=== PATIENT | female | born 1975 | race Caucasian/White ===

== ENCOUNTER 2019-05-14 13:45 | Day surgery (SDC) | payer BC, SELFPAY ==
[2019-05-11 12:40] VITALS: BMI 41.6
[2019-05-14] VITALS (14 sets, daily range): BP systolic 106–136; BP diastolic 62–86; PULSE 75–106; RESP 8–20; TEMP 36–36.4; O2SAT 95–99; BMI 41.0
--- NOTE | 2019-05-14 | DI.RAD.S_ITS ---
PROCEDURE: XR LUMBAR SPINE 2-3V INDICATIONS: L4-5 MICRODISECTOMY TECHNIQUE: 2 views of the lumbar spine were acquired. COMPARISON: [facility], , -SPINE 2-3 VIEWS, 10/25/2014, 10:04. FINDINGS: Spot fluoroscopic images demonstrating surgical instrument with the tip projecting at the L4-L5 level in the posterior paraspinal soft tissues. Dictated by: Kaiser Scanlon M.D. on 05/14/2019 at 16:09 Approved by: Kaiser Scanlon M.D. on 05/14/2019 at 16:09
[2019-05-14] MEDS: LACTATED RINGERS 1,000 ML 42 ML IV (14:16)
--- NOTE | 2019-05-14 14:39 | PM.PREOP ---
Pre-operative Note Interval Note History & Physical reviewed/Exam performed by Physician: Yes Changes to H&P: No
[2019-05-14] MEDS: CEFAZOLIN 2 GM/100 ML FROZ.PIGGY IV (15:07)
--- NOTE | 2019-05-14 15:34 | SUR.OPER ---
Prone on spine table, head in foam head support, padded chest and pelvic supports, gel pad at knees, lower legs supported by pillows; nipples, genitalia and toes free of pressure, arms secured on foam padded arm boards at <90 degrees abduction. Gel pads added under bilateral thighs, Tape over blanket at thigh secured to table.
[2019-05-14] MEDS: BUPIVACAINE 0.25% W/ EPI 30 ML VIAL INJ (15:39)
[2019-05-14] MEDS: methylPREDNISolone acet DEPO 40 MG/ML VIAL INJ (15:40)
--- NOTE | 2019-05-14 16:02 | P.OP_ITS ---
Operative Date/Time/Diagnoses Date of procedure: 05/14/19 Time of procedure: 15:03 Pre-op diagnosis: 1. L4-5 disc herniation 2. Lumbar radiculopathy Post-op diagnosis: same Procedure & Clinicians Procedure: 1. L4-5 right microdiscectomy with laminotomy 2. Utilization of microsurgical technique and operating microscope Same procedure as scheduled: Yes Indications: Patient has been having chronic back pain and worsening lumbar radiculopathy. Patient failed multiple conservative management with worsening pain weakness and numbness in her lower extremity. Patient has been having difficulty performing activity of daily living. After discussing risks benefits of treatment options, patient elected proceed with surgery. Surgeon: Hailey Napier Slitter And Rewinder Machine Operator: Barbara Choudhary Click Yes if Unassisted: No Anesthesia Type: General Operative Notes Closure Type: primary Specimen(s): none sent Estimated Blood Loss (mL): 10 Blood products transfused: none Procedure in detail: Patient was seen in the preoperative area. Risks and benefits of the surgery was discussed with the patient. Informed consent was obtained from the patient and placed in the chart. Surgical site was marked. Patient was taken to the operative room. General anesthesia was administered. Prophylactic antibiotic was given to the patient less than 30 min before the incision was made. Patient was placed into a prone position on the Crow table. Patient's back was then prepped and draped in the sterile fashion. Time- out was performed at this time. Using AP and lateral C-arm imaging the interval between L4-5 was identified and marked on patient's back. A 1 inch incision 1 in from midline was made on the right side. The fascia was incised in line with skin incision. Globus MARS retractors was placed inside the incision and docked onto the L4 lamina. Using microsurgical technique and operating microscope, a L4-5 laminotomy was performed using a Kerrison rongeur. Liagamentum flavum was resected at the site of the laminotomy. The disc space at L4-5 was identified. Microcurettes and pituitary was used to removed herniated disc fragments of disc from the epidural space and completing a microdiscectomy procedure. After the microdiskectomy was completed, the area medial lateral superior and inferior to the area of the microdiskectomy was inspected and explored using a micro curette. No other impinging structure was identified. The wound was then irrigated with sterile normal saline. 40 mg Depo-Medrol was placed into the epidural space. The deep fascia was closed with 1-0 Vicryl. The subcutaneous tissue was closed with 2-0 Vicryl. The skin was closed with skin amie. Patient tolerated the procedure well. There were no complications. Patient was transferred recovery room in stable condition. Complications: none Post-operative Condition: stable Disposition: same day surgery Plan for aftercare: Discharge to home
[2019-05-14] MEDS: HYDROMORPHONE 2 MG INJ 0.5 MG IV ×4 (16:32→17:01)
[2019-05-14] MEDS: OXYCODONE/ACETAMINOPHEN 5/325 TABLET 1 TAB PO ×2 (16:33→17:04)
--- NOTE | 2019-05-14 16:53 | SUR.PHASEI ---
Pt awake, oriented, tolerating PO well. Rx for pain, slight improvement.
--- NOTE | 2019-05-14 17:14 | SUR.PHASEI ---
Report given to Isaac Trejo RN. Pt verbalizes pain improvement, appears relaxed and comfortable. Dressing remains CDI.
--- NOTE | 2019-05-14 17:18 | SUR.PHASEI ---
ASSUMED CARE OF PT AT THIS TIME. PT SITTING UP IN BED WITH EYES OPEN. PT APPEARS COMFORTABLE. DRSG OBSERVED TO BE C/D/I. IV SITE CLEAR AND INFUSING WITHOUT DIFFICULTLY. PT DENIES ANY NAUSEA.
== END 2019-05-14 18:23 | disposition home or self-care (01) ==
PROVIDERS: PCP Nurse Practitioner; Visit Provider Orthopaedic Surgery Orthopaedic Surgery of the Spine
PROC: (CPT 63030; principal; 2019-05-14 15:45)
DX: M51.16 Intervertebral disc disorders with radiculopathy, lumbar region (principal); M48.061 Spinal stenosis, lumbar region without neurogenic claudication
CPT/HCPCS: 63030; 72100; 76000; J0690; J1030; J1100; J1170; J1885; J2250; J2405; J2704; J3010

== ENCOUNTER 2019-09-10 11:18 | Inpatient (IN) | payer BC, OTHER, SELFPAY ==
[2019-09-03 09:34] VITALS: BMI 42.9
[2019-09-10] VITALS (23 sets, daily range): BP systolic 96–142; BP diastolic 41–87; PULSE 85–118; RESP 10–16; TEMP 36.1–36.8; O2SAT 86–100; BMI 42.9
--- NOTE | 2019-09-10 | DI.RAD.S_ITS ---
PROCEDURE: XR LUMBAR SPINE 2-3V INDICATIONS: L4-5 TLIF TECHNIQUE: 2 views of the lumbar spine were acquired. COMPARISON: [facility], [place], XR LUMBAR SPINE 2-3V, 05/14/2019, 15:35. [facility], [place], L-SPINE 2-3 VIEWS, 10/25/2014, 10:04. FINDINGS: Bones: Normal alignment established after placement of transverse pedicle screws and vertical fixation rods crossing L4-L5 with interbody disc cage prosthesis device centrally positioned. Soft tissues: Overlying bowel gas pattern is normal. No suspicious soft tissue calcifications. IMPRESSION: Expected postoperative appearance, after posterior fusion and interbody disc cage prosthesis device, L4-L5. Normal alignment. Dictated by: Andrey Somers M.D. on 09/11/2019 at 10:25 Approved by: Andrey Somers M.D. on 09/11/2019 at 10:26
[2019-09-10] MEDS: LACTATED RINGERS 1,000 ML 42 ML IV ×3 (12:11→19:32)
--- NOTE | 2019-09-10 14:54 | PM.PREOP ---
Pre-operative Note Interval Note History & Physical reviewed/Exam performed by Physician: Yes Changes to H&P: No
[2019-09-10] MEDS: CEFAZOLIN 2 GM/100 ML FROZ.PIGGY IV ×2 (15:21→22:21)
--- NOTE | 2019-09-10 15:59 | SUR.OPER ---
Prone on spine table, head in foam head support, padded chest and pelvic supports, gel pad at knees, lower legs supported by pillows; nipples, genitalia and toes free of pressure, arms secured on foam padded arm boards at <90 degrees abduction. Tape over blanket at thigh secured to table.
[2019-09-10] MEDS: BUPIVACAINE 0.25% W/ EPI 30 ML VIAL INJ (16:07)
[2019-09-10] MEDS: BUPIVACAINE LIPOSOME 266 MG/20 ML VIAL INJ (16:08)
--- NOTE | 2019-09-10 18:13 | P.OP_ITS ---
Operative Date/Time/Diagnoses Date of procedure: 09/10/19 Time of procedure: 15:13 Pre-op diagnosis: 1. L4-5 recurrent disc herniation 2. L4-5 spinal stenosis with radiculopathy Post-op diagnosis: same Procedure & Clinicians Procedure: 1. L4-5 Postero-lateral and posterior interbody fusion 2. L4-5 interbody cage placement. 3. L4-5 decompressive laminectomy with bilateral facetecomies 4. L4-5 Posterior non-segmental instrumentation 5. [place] of bone marrow from iliac crest 6. Utilization of microsurgical technique and operating microscope Same procedure as scheduled: Yes Indications: Patient has been having chronic back pain and worsening lumbar radiculopathy. Patient had prior lumbar microdiskectomy with recurrence of her symptoms. Patient failed multiple conservative management with worsening pain weakness and numbness in her lower extremity. Patient has been having difficulty performing activity of daily living. After discussing risks benefits of treatment options, patient elected proceed with surgery. Surgeon: Hailey Napier Cleaning Machine Operator: Marylu Reilly Click Yes if Unassisted: No Anesthesia Type: General Operative Notes Closure Type: primary Specimen(s): none sent Prosthetic devices, grafts, tissues, transplants, or devices: Globus revolve screws, Rise cage Estimated Blood Loss (mL): 50 Blood products transfused: none Procedure in detail: Patient was seen in the preoperative area. Risks and benefits of the surgery was discussed with the patient. Informed consent was obtained from the patient and placed in the chart. Surgical site was marked. Patient was taken to the operative room. General anesthesia was administered. Prophylactic antibiotic was given to the patient less than 30 min before the incision was made. Patient was placed into a prone position on the Crow table. Patient's back was then prepped and draped in the sterile fashion. Time- out was performed at this time. Using AP and lateral C-arm imaging the interval between L4-5 was identified and marked on patient's back. A 2 inch incision 2 in from midline was made on the right side first. The fascia was incised in line with skin incision. Globus MARS retractors was placed inside the incision and docked onto the L4 lamina. Using microsurgical technique and operating microscope, a L4 laminectomy and L4- 5 facetectomy was performed using a Kerrison rongeur. Patient was found have severe neuroforaminal stenosis and moderate central stenosis with epidural scarring. The stenosis was fully decompressed after the decompression was completed. The disc space at L4-5 was identified. And a total diskectomy was performed at L4-5 level. The endplates were decorticated using a rasp and shaver. The total diskectomy and decortication was performed at L4-5 level in order to to accomplish a L4-5 fusion. The local bone from the laminectomy and facetectomy was saved for local bone grafting. After the total diskectomy and decortication was completed, Bio4 bone graft material was combined with local bone that was harvested earlier. At this time, a separate skin is incision was made over the iliac crest. A Jamshidi needle was inserted into the iliac crest through a separate skin incision. 5 cc of bone marrow aspiration was obtained through the separate skin incision using a Jamshidi needle from the iliac crest. The bone marrow aspiration was combined with local bone and the Bio4 bone grafting material. The bone grafting material was placed into the L4-5 interbody space along with a expandable cage. The cage was expanded to its maximum height using the torque limiting screwdriver. At this time a mirror image incision was made on the left side. The fascia was incised in line with the skin incision. Globus MARS retractor was inserted and docked onto the L4-5 posterolateral gutter. Using the power drill, posterior- lateral decortication was performed at L4-5 level until bleeding cortical bone was identified. The remaining bone grafting material was placed into the L4-5 posterior lateral gutter he order to accomplish posterolateral fusion at the L4- 5 level. Using the double C-arm technique, pedicle screws were placed into the L4-5 pedicles bilaterally. This was done by placing the Jamshidi needle into the pedicles, then placing the guidewires over the Jamshidi needle, and finally placing the cannulated screws over the guidewires bilaterally. After the pedicle screws were placed, 2 titanium rods was locked into the heads of the pedicle screws using locking caps and torque limiting screwdriver. After all the hardware was placed, and confirmed with AP and lateral C-arm imaging, the wound was then irrigated with sterile normal saline and packed with Ray-Malathi gauze for 3 min to accomplish hemostasis. After the gauze was removed the deep fascia was closed with #1 Vicryl suture. The subcutaneous layer was closed with 2-0 Vicryl. The skin was closed with skin amie. Patient tolerated the procedure well. There were no complications. Complications: none Post-operative Condition: stable Disposition: PACU Plan for aftercare: Admit to inpatient hospital
[2019-09-10] MEDS: HYDROMORPHONE 2 MG INJ IV ×4 (18:31→19:03)
[2019-09-10] MEDS: ONDANSETRON 4 MG/2 ML INJ IV (18:32)
[2019-09-10] MEDS: hydrOXYzine 50 MG/ML INJ 25 MG IM (18:32)
[2019-09-10] MEDS: fentaNYL 100 MCG/2 ML INJ 50 MCG IV (19:07)
[2019-09-10] MEDS: fentaNYL 100 MCG/2 ML INJ IV (19:17)
[2019-09-10] MEDS: LORazepam 2 MG/ML INJ 0.25 MG IV (19:27)
--- NOTE | 2019-09-10 19:44 | SUR.PHASEI ---
patient rating pain 6/10. Encouraged deep breathing. Repositioned for comfort and placed pillows under each arm.
[2019-09-10] MEDS: SODIUM CHLORIDE 0.9% 1,000 ML 100 ML IV (20:52)
[2019-09-10] MEDS: HYDROCODONE/ACET 5/325 TABLET 2 TAB PO (21:00)
[2019-09-10] MEDS: DOCUSATE 100 MG CAPSULE PO (21:08)
[2019-09-10] MEDS: HYDROMORPHONE 0.5 MG INJ IV (22:21)
--- NOTE | 2019-09-10 23:59 | PC.NURSE ---
Post-op note: Patient brought to rm 221 at 2015, awake, oriented to situation. Rating back pain still a 5 or 6, reporting some relief from meds given in PACU. Lower back drsg is CDI. No redness or swelling around drsg site. Encouraged her to logroll, asked her if she wanted to roll to side to help alleviate pain but she declined saying I don't think that will help. Medicated her with 2 tabs [place]. Tolerating few scacks, pudding, soup & crackers. After 1 hour she reported pain still a 6 or 7, medicated with Dilaudid 0.5 mg IV which she said really helped. After med given, she was transfered to BS with 1 person SBA, denied dizziness or nausea, able to void, then back to bed. Still reporting good pain relief. Visiting with TORY Plascencia, he is spending night on window bench. Full patient report given to Selene BELL RN.
[2019-09-11] VITALS (9 sets, daily range): BP systolic 94–133; BP diastolic 53–75; PULSE 80–109; RESP 16–21; TEMP 36.1–37.7; O2SAT 96–99
[2019-09-11] MEDS: HYDROMORPHONE 0.5 MG INJ IV ×8 (00:12→22:33)
[2019-09-11] MEDS: HYDROCODONE/ACET 5/325 TABLET 2 TAB PO ×3 (03:35→11:43)
[2019-09-11] MEDS: CEFAZOLIN 2 GM/100 ML FROZ.PIGGY IV (06:50)
--- NOTE | 2019-09-11 07:46 | PM.PNPO.1 ---
Subjective Subjective Date Patient Seen: 09/11/19 Time Patient Seen: 07:46 Interval history: Pain 6/10. No fever chills. No nausea vomiting. Exam Vital Signs (past 8 hours): - 09/11/19 05:00 Temperature 97.2 F L Pulse Rate 91 H Respiratory Rate 16 Blood Pressure 128/61 Pulse Oximetry 99 Oxygen Delivery Method Room Air Oxygen Flow Rate 2 Narrative Exam Narrative: Obese 44-year-old female resting comfortably in bed in no apparent distress. Lumbar dressing is clean, dry and intact. Motor functions intact bilateral lower extremities. Sensation grossly intact to light touch bilateral lower extremities. Both legs are warm and dry. Assessment & Plan Post-op Postoperative Procedures: Procedures Operation Date: 09/10/19 13:45 Actual Procedures Side Surgeon p L4-5 TLIF Not Applicable Hailey Napier MD Postop day 1. Continue work on pain management. Mobilize with physical therapy. Limit bending, lifting, twisting. Quality VTE Deep Vein Thrombosis/Pulmonary Embolism Present on Admission: No
[2019-09-11] MEDS: VENLAFAXINE ER 75 MG CAP PO (07:47)
[2019-09-11] MEDS: DOCUSATE 100 MG CAPSULE PO ×2 (07:47→20:14)
[2019-09-11] MEDS: hydrOXYzine pamoate 25 MG CAPSULE PO ×3 (10:23→21:07)
--- NOTE | 2019-09-11 10:49 | CM.DANOTE ---
DCP: Case received, EMR reviewed and met with patient. Introduced self and role. Was able to meet with patient to obtain information regarding baseline activity and health information. DCP assessment completed with information currently available. Patient is a 44 year old female who admitted yesterday morning to the care of the orthopedic team. PCP: Dr. Leos. Payer: confirmed: [facility] Patient came to the hospital for a surgical procedure. She had L4-5 posteo later interbody fusion. Patient has history of chronic back pain secondary to spinal stenosis. Met with patient in her room. She was laying on her back, alert and oriented, pleasant. Patient resides on [address] with her spouse, Temo, and her teenagers. She has a 15 and a 19 year old. Patient mentioned that her back problems started when she had tripped and fallen down the stairs. Patient is independent, does use a cane at times. She drives, for she drives her daughter to [place] for her school. She has not yet been up with P.T. P: DCP to continue to follow. Patient will be working with P.T. She should be able to go home when she is medically stable and after she works with P.T. Wendy Chau RN/Me[employer] Car Checker
--- NOTE | 2019-09-11 11:00 | PT.IIE ---
Current Diagnoses Spinal stenosis, lumbar region without neurogenic claudication (09/10/19) Intervertebral disc disorders with radiculopathy, lumbar region (09/10/19) Other specified postprocedural states (09/10/19) Surgery Performed Operation Date: 09/10/19 13:45 Actual Procedures p L4-5 TLIF(Not Applicable) - Hailey Napier MD Surgical History (Last Updated 09/03/19 @ 10:08 by Mandie Herbert, RN) Hx of microdiscectomy (Acute 05/14/19) Medical History (Last Updated 09/03/19 @ 10:13 by Mandie Herbert RN) Anxiety (Acute) Arthritis (Acute) Balance problem (Acute) Clenching of teeth (Acute) Foot fracture, left (Acute ~2014) Heartburn (Acute) Lumbar disc herniation (Acute) Radiculopathy (Acute) Sciatica (Acute) Spinal stenosis of lumbar region (Acute) Physical Therapy Inpatient Evaluation/Re-Eval M1 PT/OT-IP Prior Functional Status Start: 09/11/19 12:18 Freq: NEEDED Status: Active Protocol: Document 09/11/19 11:00 AB (Rec: 09/11/19 12:35 AB [id number]) Medical Review Prior Functional Status Medical History Reviewed Yes Communication able to make needs known Mobility and Gait pt stated that she is modified independent with all mobilities and ambulation without AD but occasionally uses a SPC depending on pain level Social History Household Members spouse,children Living Arrangements House Number of Floors (Floors) Two Floors Number of Stairs To Enter/Railing? 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 fusion/lami; difficulty in walking Onset Date 09/10/2019 Precautions Lumbar Precautions Log Roll,No Twisting,Limit Bending,Lifting Restriction of 10 lbs,Gait Belt above Incisional Area M3 PT-IP Subjective Start: 09/11/19 12:18 Freq: NEEDED Status: Active Protocol: Document 09/11/19 11:00 AB (Rec: 09/11/19 12:35 AB [id number]) Subjective Physical Therapy Visit Type Type Initial Evaluation Visit Start Time 11:00 Visit Stop Time 11:45 Total Visit Minutes 45 Number of UNIVERSITY TUTOR Visits 0 Physical Therapy Visit Comments Patient Comments pt agreeable to do PT Therapy Pain Assessment Pain When Pain Assessed At Rest Pain Present Pain Present Pain Reported Location Lower Back Intensity 7 Scale Used Numeric (1 - 10) Pain Management Techniques Apply Cold,Re-positioning, Timing of Activity with Medications M4 PT-IP Mobility and Gait Start: 09/11/19 12:18 Freq: NEEDED Status: Active Protocol: Document 09/11/19 11:00 AB (Rec: 09/11/19 12:35 [id number]) PT-Bed Mobility Assessment Rolling Type of Rolling Log Rolling Level of Assist Maximal Assistance,1 Person Assistance Supine to Sit Supine to Sit Moderate Assistance,1 Person Assistance Scooting Scooting to Edge of Bed Moderate Assistance,Maximum Assistance PT-Transfer Assessment Sit to and From Stand Sit to and from Stand Moderate Assistance,1 Person Assistance,Use of Upper Extremities Equipment Transfer Assistive Device Gait Belt,Front Wheeled Walker Orthotic/Prosthetic Devices or Brace: No Transfers Transfer Destination Chair Transfer Technique ambulated using FWW Transfer Ability Level of Assist Moderate Assistance,1 Person Assistance,Use of Upper Extremities Comments Mobility Comments educated on back precautions and log roll bed mobility. completed supine to sit max A and max cues. pt was able to sit on EOB SBA. completed sit to stand mod A and cues. ambulated in room ~ 30 ft min A and cues using FWW. pt agreed to sit up on chair. positioned on chair. call light and table placed within reach. Gait Assessment Gait Gait Assistance Required: Minimum Assistance,1 Person Assist Distance (Feet) 30 Able to Maintain Weight Bearing Status Yes During Gait Assistive Devices Assistive Device Gait Belt,Front Wheeled Walker Orthotic/Prosthetic Devices or Brace: No Gait Deviations General Gait Pattern Antalgic,Decreased Stride Length,Decreased Feet Clearance Factors Limiting Gait Function Factors Limiting Gait Function Decreased Activity Tolerance, Decreased Sensation,Decreased Strength,Limited Range of Motion,Pain,Poor Balance PT-Balance Assessment Sitting Balance and Reactions Static Sitting Balance Ability Good Dynamic Sitting Balance Ability Good Standing Balance and Reactions Static Standing Balance Ability Fair Dynamic Standing Balance Ability Fair Device Used FWW M5 PT-IP Objective Assessments Start: 09/11/19 12:18 Freq: NEEDED Status: Active Protocol: Document 09/11/19 11:00 AB (Rec: 09/11/19 12:35 AB [id number]) Orientation Orientation/Cognition Level of Alertness Alert Orientation Name,Age,Place,Situation Language Function Ability No Deficits Noted Safety Awareness Understands Safety Issues Memory Description No Deficits Noted Gross Range of Motion Lower Extremity ROM Assessment Within Functional Limits Strength Lower Extremity Strength Assessment Bilaterally Impaired Comments Strength Comments RLE 3+/5 LLE 4-/5 Coordination Assessment Gross Coordination Gross Coordination WNL Sensation Assessment Sensation Sensation Description Numbness,Tingling,Pain Comments Sensation Comments pain, numbness, tingling : RLE >LLE Muscle Tone Muscle Tone WNL Yes M6 PT-IP Treatment Start: 09/11/19 12:18 Freq: NEEDED Status: Active Protocol: Document 09/11/19 11:00 AB (Rec: 09/11/19 12:35 [id number]) Physical Therapy Treatment Education Education Provided Precautions,Weight Bearing Status,Post-Op Packet,Safety M7 PT-IP Assessment and Plan Start: 09/11/19 12:18 Freq: NEEDED Status: Active Protocol: Document 09/11/19 11:00 AB (Rec: 09/11/19 12:35 [id number]) PT Summary Assessment and Plan Potential Rehabilitation Potential Good Status of Condition at Evaluation Stable Summary Impairments Pain,ROM,Strength,Balance, Sensation,Bed Mobility, Transfers,Gait,Activity Tolerance Assessment Summary pt requiring max A for bed mobility, mod A for transfers, min A for ambulation using FWW. pt plans to gohome with spouse to assist her. will conducted caregiver training when appropriate. will also complete stair training. Goals Bed Mobility Goal Independent Transfer Goal Independent,Front Wheeled Walker Gait Goal Independent,Front Wheel Walker Gait Distance 250 Other Goals up/down 15 steps L rail asceding SBA up/down 2 steps using foot stool and FWW to get into the shower SBA Days to Meet Goals 5 Frequency of Treatment Frequency Of Treatment Twice a Day Treatment Plan Physical Therapy Treatment Plan Bed Mobility Training,Transfer Training,Gait Training, Therapeutic Exercise,Balance Retraining,Post Op Education, Discharge Planning,Hot or Cold Pack,Neuromuscular Re-ed, Coordination Retraining,Manual Therapy Other Recommendations and Next Treatment caregiver training; up/down Focus foot stood using FWW Recommendations To Nursing Amount of Assist Needed 1 Person Assist Discharge Recommendations PT Discharge Recommendations Home with Assistance Equipment Needed for Home Before FWW Discharge Transportation Needs at Discharge Private Vehicle
--- NOTE | 2019-09-11 13:22 | OT.IP.EVAL ---
Current Diagnoses Spinal stenosis, lumbar region without neurogenic claudication (09/10/19) Intervertebral disc disorders with radiculopathy, lumbar region (09/10/19) Other specified postprocedural states (09/10/19) Surgery Performed Operation Date: 09/10/19 13:45 Actual Procedures p L4-5 TLIF(Not Applicable) - Hailey Napier MD Past Medical History (Last Updated 09/03/19 @ 10:13 by Mandie Herbert, RN) Anxiety (Acute) Arthritis (Acute) Balance problem (Acute) Clenching of teeth (Acute) Foot fracture, left (Acute ~2014) Heartburn (Acute) Lumbar disc herniation (Acute) Radiculopathy (Acute) Sciatica (Acute) Spinal stenosis of lumbar region (Acute) Surgical History (Last Updated 09/03/19 @ 10:08 by Mandie Herbert RN) Hx of microdiscectomy (Acute 05/14/19) Occupational Therapy Inpatient Evaluation/Re-Eval M1 PT/OT-IP Prior Functional Status Start: 09/11/19 12:18 Freq: NEEDED Status: Active Protocol: Document 09/11/19 13:22 PJM (Rec: 09/11/19 15:30 PJM [id number]) Medical Review Prior Functional Status Medical History Reviewed Yes Diet/Fluid Consistency Mechanical Soft Communication WNL Mobility and Gait Pt states she normally ambulates without a device, but occasionally uses a cane if pain level is high. Activities of Daily Living and IADL's Pt independent with all self care. She and S.O. share IADLS. Pt drives. Prior Functional Level (Other details) Pt has 2 children living with her, ages 19 and 15 yrs. Social History Household Members spouse,children Living Arrangements House Number of Floors (Floors) Two Floors Number of Stairs To Enter/Railing? No steps to enter lower level with bedroom and shower stall in bathroom. There are 15 steps with L rail ascending to kitchen level and second bathroom with tub shower combo. Home Environment Walk in Shower,Tub/Shower Home Equipment Straight Cane,Hand Held Shower Employment Status Unemployed Additional Social History Comment Pt states shower stall has a 12 high threshold to enter. M2 OT-IP Current Condition Start: 09/11/19 11:42 Freq: Status: Active Protocol: Document 09/11/19 13:22 PJM (Rec: 09/11/19 15:30 [facility] [id number]) Occupational Therapy Current Condition Current Condition Evaluation Date 09/11/19 Treatment Diagnosis decreased self care, mobility s/p L4-5 TLIF Diagnosis Onset Date 09/10/19 Post Operative Precautions Lumbar Precautions Log Roll,No Twisting,Limit Bending,Lifting Restriction of 10 lbs,Gait Belt above Incisional Area M3 OT- IP Subjective and Pain Start: 09/11/19 11:42 Freq: Status: Active Protocol: Document 09/11/19 13:22 PJM (Rec: 09/11/19 15:30 [facility] [id number]) OT- Subjective Occupational Therapy Visit Type Type Initial Evaluation Visit Start Time 12:27 Visit Stop Time 13:22 Total Visit Minutes 55 Notes Supportive capable S.O. here for education today. Occupational Therapy Visit Comments Patient Comments I didn't think I would have this much pain. Patient/Caregiver Goals to go home and resume daily tasks with less back pain OT Pain Assessment Pain When Pain Assessed After Treatment Pain Present Pain Present Pain Reported Location Lower Back Intensity 5 Scale Used Numeric (1 - 10) Description Aching,Acute Pain Behaviors Facial Grimacing,Guarding Management Techniques Distraction,Re-positioning, Timing of Activity with Medications M4 OT- IP ADL's Start: 09/11/19 11:42 Freq: Status: Active Protocol: Document 09/11/19 13:22 PJM (Rec: 09/11/19 15:30 [facility] [id number]) OT [id number] General Evaluation Self-Feeding Ability Independent OT ADL-Grooming General Evaluation Grooming Ability Standby Assistance Areas Needing Assistance Retrieving/Set-up of Grooming Items,Face Washing Comments OT Grooming Comments seated in chair OT ADL-Oral Care General Eval Oral Care Ability Standby Assistance Areas of Assistance Retrieving/Set-Up of Items Devices Oral Care Devices Electric Toothbrush Comments Oral Care Comments seated in chair OT ADL-Dressing General Eval Upper Body Dressing Ability Minimal Assistance Lower Body Dressing Ability Minimal Assistance Areas Needing Assistance Underpants/Brief,Socks Assistive Devices Dressing Assistive Devices Director Automotive,Sock Aid Comments OT Dressing Comments Began education re: use of veneer jointer offbearer and sock aid for lower body dressing within lumbar precautions. Provided equipment at pt request. OT ADL-Toileting General Evaluation Toileting Ability Moderate Assistance Areas Needing Assistance Perform Perineal Hygiene Comments OT Toileting Comments Provided education re: use of toilet paper aids and resources for obtaining one OT ADL-Bathing Bathing Type Bathing Type Shower Devices Bathing Equipment Tub Transfer Bench Comments OT Bathing Comments Began education re: options for showering in shower stall with difficult high access vs going upstairs to tub shower combo. Pt prefers to sponge bathe until she can do full flight of stairs up to tub shower combo. They plan to rent or borrow transfer tub bench. Provided education re: method to adapt shower curtain to keep water in tub with use of transfer tub bench. M5 OT- IP IADL's Start: 09/11/19 11:42 Freq: Status: Active Protocol: Document 09/11/19 13:22 PJM (Rec: 09/11/19 15:30 [facility] [id number]) OT-Instrumental Activities of Daily Living Deficits IADL Deficits Identified Deficits Home Safety Awareness Awareness of Need for Assistance at Home Good Awareness Ability to Problem Solve Emergency Able to Problem Solve Situations Home Safety Comments supprotive capable S.O. can assist with IADLS PRN Medication Management Medication Management No Deficits Identified Money Management Money Management No Deficits Identified Meal Preparation Meal Preparation Caregiver Provides Assist Meal Preparation Comments until pt able Studio Assistant Studio Assistant Caregiver Provides Assist Studio Assistant Comments until pt able Driving Driving Caregiver Provides Assist Driving Comments until pt able M6 OT- IP Functional Cognition Start: 09/11/19 11:42 Freq: Status: Active Protocol: Document 09/11/19 13:22 PJM (Rec: 09/11/19 15:30 [facility] [id number]) Cognitive Factors Limiting Selfcare Function Cognitive Ability Level of Alertness Alert Patient Orientation Name,Age,Birthday,Month,Date, Year,Day of Week,Place, Situation Attention Span Ability Capable of Focused Attention, Capable of Sustained Attention Ability to Follow Commands Able to Follow Multi-Step Commands Memory Description No Deficits Noted Safety Awareness No Deficits Noted Problem Solving Ability No deficits Noted Cognitive Comments Cognitive Assessment Comments Pt verbalizes and demonstrates understanding of lumbar spine precautions. OT- Vision and Hearing OT- Hearing Assessment OT- Hearing Assessment WFL OT- Vision Assessment Visual Acuity WFL M7 OT- IP Mobility and Balance Start: 09/11/19 11:42 Freq: Status: Active Protocol: Document 09/11/19 13:22 PJM (Rec: 09/11/19 15:30 PJ [id number]) OT- Bed Mobility Assessment Rolling Type of Rolling Log Rolling,Roll to Right Level of Assistance Minimal Assistance,1 Person Assistance Sit to Supine Sit to Supine Assist Minimal Assistance,1 Person Assistance Scooting Scooting to Edge of Bed Standby Assistance OT-Transfer Assessment Sit to and From Stand Sit to and from Stand Minimal Assistance Transfers Transfer Ability Contact Guard Assistance Technique Transfer Destination Bed,Chair Transfer Technique Stand Step Pivot Devices Transfer Assistive Devices Gait Belt,Front Wheeled Walker OT- Gait Assessment Gait Gait Assistance Required: Contact Guard Assist Distance (Feet) 10 Assistive Devices Assistive Device Gait Belt,Front Wheeled Walker Comments Gait Ability Comments no LOB noted OT- Balance Assessment Sitting Balance and Reactions Static Sitting Balance Ability Good Dynamic Sitting Balance Ability Good Standing Balance and Reactions Static Standing Balance Ability Good Dynamic Standing Balance Ability Fair Comments Other Balance Tests/Deviations/Treatment when standing for lower body : clothing management M8 OT- IP Objective Assessments Start: 09/11/19 11:42 Freq: Status: Active Protocol: Document 09/11/19 13:22 PJM (Rec: 09/11/19 15:30 PJ [id number]) OT Gross Range of Motion Upper Extremity Range of Motion Assessment Within Functional Limits OT Strength Upper Extremity Strength Assessment Right Impaired Hand Eyelet Machine Operator Strength Hand Dominance Right OT- Coordination Assessment Comments Coordination Comments BUE WNL OT-Muscle Tone Assessment Muscle Tone WNL Yes OT Sensation Assessment Comments Summary Comments BUE WNL Edema Edema Absent M9 OT- IP Assessment and Plan Start: 09/11/19 11:42 Freq: Status: Active Protocol: Document 09/11/19 13:22 PJM (Rec: 09/11/19 15:30 [facility] [id number]) OT Summary Assessment and Plan Potential Rehabilitation Potential Good Analytic Complexity at Evaluation Low Summary OT Impairments Pain,Functional Mobility, Grooming,Dressing,Toileting, Bathing,Toilet Transfers, Shower Transfers,Activity Tolerance Assessment Summary Low complexity OT assessment completed on this 44 yr old female s/p L4-5 TLIF. Began education with pt and S.O. re: lumbar spine precautions, lower body dressing with adaptive equipment, bathroom safety equipment options, tub transfer bench sit and swivel technique and toilet paper aids. Written resource information provided. Pt currently has performance deficits in activity tolerance, functional mobility/transfers, standing grooming, lower body dressing and showering due to post op pain. Pt will benefit from 1-2 additional OT visits here to address the goals below. Anticipate pt will be able to d/c home with assist form supportive S.O. Goals Grooming Goal Independent Dressing Goal Standby Assistance,Long Handled Shoe Horn,Director Automotive,Sock Aid Toileting Goal Standby Assistance,Toilet Paper Aid Bathing Goal Standby Assistance,Long Handled Sponge or [place] Toilet Transfer Goal Standby Assistance Shower Transfer Goal Contact Guard Assistance,Tub/ Shower Combination,Tub Transfer Bench Patient/Caregiver Education Goal Demonstrate Post-Op Precautions,Demonstrate Energy Conservation and Pacing, Caregiver Independent Assisting Patient OT-Other Goals Grooming to be done standing at sink with FWW. Days to Meet Goals 2 Frequency of Treatment Frequency Of Treatment Once a Day Treatment Plan OT Treatment Plan ADL Training,Functional Mobility,Patient/Family Education,Discharge Planning Discharge Recommendations OT Discharge Recommendations Home with Assistance Transportation Needs at Discharge Private Vehicle
[2019-09-11] MEDS: SODIUM CHLORIDE 0.9% FLUSH 10 ML IV ×2 (14:49→20:25)
[2019-09-11] MEDS: ACETAMINOPHEN 325 MG TABLET 650 MG PO (15:09)
[2019-09-11] MEDS: HYDROMORPHONE 2 MG TABLET PO ×3 (15:09→20:58)
--- NOTE | 2019-09-11 15:27 | PT.IPTN ---
Current Diagnoses Spinal stenosis, lumbar region without neurogenic claudication (09/10/19) Intervertebral disc disorders with radiculopathy, lumbar region (09/10/19) Other specified postprocedural states (09/10/19) Surgery Performed Operation Date: 09/10/19 13:45 Actual Procedures p L4-5 TLIF(Not Applicable) - Hailey Napier MD Physical Therapy Treatment Note M2 PT-IP Current Condition Start: 09/11/19 12:18 Freq: NEEDED Status: Active Protocol: Document 09/11/19 11:00 AB (Rec: 09/11/19 12:35 AB [id number]) Physical Therapy Current Condition Current Condition Evaluation Date 09/11/19 Treatment Diagnosis s/p L4-5 post. fusion/lami; difficulty in walking Onset Date 09/10/2019 Precautions Lumbar Precautions Log Roll,No Twisting,Limit Bending,Lifting Restriction of 10 lbs,Gait Belt above Incisional Area M3 PT-IP Subjective Start: 09/11/19 12:18 Freq: NEEDED Status: Active Protocol: Document 09/11/19 15:27 AB (Rec: 09/11/19 17:52 AB [id number]) Subjective Physical Therapy Visit Type Type Treatment Note Visit Start Time 15:27 Visit Stop Time 16:20 Total Visit Minutes 53 Number of GEOLOGY INSTRUCTOR Visits 0 Physical Therapy Visit Comments Patient Comments agreeable to do PT; c/o increase LLE pain towards end of tx session Therapy Pain Assessment Pain When Pain Assessed At Rest Pain Present Pain Present Pain Reported Location Left Leg Intensity 8 Scale Used Numeric (1 - 10) Lower Back Intensity 6 Pain Management Techniques Re-positioning,Timing of Activity with Medications M4 PT-IP Mobility and Gait Start: 09/11/19 12:18 Freq: NEEDED Status: Active Protocol: Document 09/11/19 15:27 AB (Rec: 09/11/19 17:52 AB [id number]) PT-Bed Mobility Assessment Rolling Type of Rolling Log Rolling Level of Assist Moderate Assistance Supine to Sit Supine to Sit Moderate Assistance,Maximum Assistance,1 Person Assistance Sit to Supine Sit to Supine Moderate Assistance,1 Person Assistance Scooting Scooting to Edge of Bed Maximum Assistance PT-Transfer Assessment Sit to and From Stand Sit to and from Stand Minimal Assistance,1 Person Assistance,Use of Upper Extremities Equipment Transfer Assistive Device Gait Belt,Front Wheeled Walker Orthotic/Prosthetic Devices or Brace: No Comments Mobility Comments caregiver training conducted. educated spouse on how to use safety belt and how to assist pt. pt completed bed mobility supine <>sit log roll x 3 sets requiring mod to max A and max cues. pt with difficulty with log rolling and scooting to the EOB. spouse was able to assist pt. pt completed sit <>stand with spouse assisting holding FWW with one hand and other hand is pushing from the bed. completed ambulation using FWW ~ 25 ft + 100 ft CGA with spouse assisting. completed up/down steps and completed with spouse assisting. pt assisted back to room on w/ c and ambulated from w/c to the toilet using FWW with spouse assisting. spouse was also able to assist pt with toileting needs. pt requested to go back to bed and ambulated from the toile to the bed using FWW CGA. completed sit to supine mod A from spouse for LE elevation. positioned pt in bed. call light and table placed within reach. c/o 8/10 pain on LLE. informed NAC. Gait Assessment Gait Gait Assistance Required: Contact Guard Assist,1 Person Assist Distance (Feet) 100 Able to Maintain Weight Bearing Status Yes During Gait Assistive Devices Assistive Device Gait Belt,Front Wheeled Walker Gait Deviations General Gait Pattern Antalgic,Decreased Stride Length,Decreased Feet Clearance Factors Limiting Gait Function Factors Limiting Gait Function Decreased Activity Tolerance, Decreased Sensation,Decreased Strength,Limited Range of Motion,Pain,Poor Balance,Poor Safety Awareness Comments Gait Comments pls refer to mobility section for details. spouse was able to assist pt with ambulation. Stair Climbing Assessment Evaluation Level of Assist On Stairs Contact Guard Assistance, Minimal Assistance,1 Person Assistance Devices Stair Climbing Assistive Devices Left Railing,Right Railing Technique/Endurance Stair Climbing Direction Ascend and Descend Stair Climbing Technique Step to Step Number of Steps Climbed 3 Stair Climbing Set # Repetitions (reps) 2 Comments Stair Climbing Comments completed updown steps using B rails CGA and then holding on with B hands on L rail with spouse assisting. will do further stair training next tx session. M5 PT-IP Objective Assessments Start: 09/11/19 12:18 Freq: NEEDED Status: Active Protocol: Document 09/11/19 11:00 AB (Rec: 09/11/19 12:35 AB [id number]) Orientation Orientation/Cognition Level of Alertness Alert Orientation Name,Age,Place,Situation Language Function Ability No Deficits Noted Safety Awareness Understands Safety Issues Memory Description No Deficits Noted Gross Range of Motion Lower Extremity ROM Assessment Within Functional Limits Strength Lower Extremity Strength Assessment Bilaterally Impaired Comments Strength Comments RLE 3+/5 LLE 4-/5 Coordination Assessment Gross Coordination Gross Coordination WNL Sensation Assessment Sensation Sensation Description Numbness,Tingling,Pain Comments Sensation Comments pain, numbness, tingling : RLE >LLE Muscle Tone Muscle Tone WNL Yes M6 PT-IP Treatment Start: 09/11/19 12:18 Freq: NEEDED Status: Active Protocol: Document 09/11/19 15:27 AB (Rec: 09/11/19 17:52 AB [id number]) Physical Therapy Treatment Education Education Provided Precautions,Safety M7 PT-IP Assessment and Plan Start: 09/11/19 12:18 Freq: NEEDED Status: Active Protocol: Document 09/11/19 15:27 AB (Rec: 09/11/19 17:52 AB [id number]) PT Summary Assessment and Plan Potential Rehabilitation Potential Good Status of Condition at Evaluation Stable Summary Impairments Pain,ROM,Strength,Balance, Coordination,Sensation,Bed Mobility,Transfers,Gait, Activity Tolerance Progress Towards Goals Slow Progress due to Pain Assessment Summary caregiver training conducted. spouse was able to assist pt safety but further stair climbing training will be conducted next tx session. pt c/o increase LLE pain of 8/10 towards end of tx session. will continue to assess progress. Pt also stated that they will get a tub transfer bench and do showers on 2nd level of the house when she feels she is ready to do stairs. Goals Bed Mobility Goal Independent Transfer Goal Independent,Front Wheeled Walker Gait Goal Independent,Front Wheel Walker Gait Distance 250 Other Goals up/down 15 steps L rail asceding SBA up/down 2 steps using foot stool and FWW to get into the shower SBA Days to Meet Goals 5 Frequency of Treatment Frequency Of Treatment Twice a Day Treatment Plan Physical Therapy Treatment Plan Bed Mobility Training,Transfer Training,Gait Training, Therapeutic Exercise,Balance Retraining,Post Op Education, Discharge Planning,Hot or Cold Pack,Neuromuscular Re-ed, Coordination Retraining,Manual Therapy Other Recommendations and Next Treatment caregiver training; stair Focus training Recommendations To Nursing Amount of Assist Needed 1 Person Assist Discharge Recommendations PT Discharge Recommendations Home with Assistance Equipment Needed for Home Before FWW Discharge Transportation Needs at Discharge Private Vehicle
--- NOTE | 2019-09-11 15:35 | PC.NURSE ---
Pain control: Late entry Rated post-op back pain no less than 5/10 after taking PRN Vicodin, Vistaril and intermittent IV Dilaudid. States I just don't think I can go home with this much pain. This physician underwriter spoke w/ Ortho PA Radha Choudhary and informed of the same, received new order to try PO Dilaudid instead of Vicodin. Patient aware and agreeable. 2 mg PO Dilaudid given just before shift change.
[2019-09-11] MEDS: SENNOSIDES 8.6 MG TABLET 17.2 MG PO (20:14)
[2019-09-11] MEDS: NORETHINDRONE AC ETH ESTRADIOL 1 EACH PO (20:27)
[2019-09-12] MEDS: hydrOXYzine pamoate 25 MG CAPSULE PO ×5 (01:41→21:40)
[2019-09-12] MEDS: SODIUM CHLORIDE 0.9% FLUSH 10 ML IV ×5 (01:41→21:00)
[2019-09-12] MEDS: HYDROMORPHONE 0.5 MG INJ IV ×4 (01:41→13:43)
[2019-09-12] MEDS: ONDANSETRON 4 MG/2 ML INJ IV (01:45)
--- NOTE | 2019-09-12 02:04 | PC.NURSE ---
Addendum entered by Krista Chang R.N. 09/12/19 06:56: Patient able to get up to bathroom with spouse assist + walker and back to bed. States pain only 4/10 when up but requested/medicated with Vistaril for additional comfort. Addendum entered by Krista Chang R.N. 09/12/19 05:58: Able to sleep for 30-45 minutes after the IV Dilaudid but now states pain is 5/10. Requested/medicated with 4mg po Dilaudid. Addendum entered by Krista Chang R.N. 09/12/19 04:38: Has been sleeping past hour but states pain woke her and currently severity is 6/10 so medicated with IV Dilaudid for breakthrough pain. Addendum entered by Krista Chang R.N. 09/12/19 03:04: States pain is down to 5/10 but still requests to have 4mg of po Dilaudid to keep pain managed. Original Note: Patient seen and assessed at 0015. Is alert and oriented. Breath sounds CTA with RA sat of 97%. HRR but tachy at 109. Denies nausea. BT present and is passing flatus. Voiding on toilet but states she has some stress incontinence. Turning in bed with assist of spouse/staff. Dressing to back is CDI. Complains of 7/10 pain and was medicated with po Dilaudid as well as Decadron. States pain is sharp and located in back and bilateral legs. Having some numbness in bilateral legs and feet; states the numbness in feet is new since PT yesterday. Calf SCD's applied at shift change. Fall risk score is moderate and bed alarm is activated. Patient was sleeping when checked on at 0100 but now up to bathroom with walker and 1 assist. States pain is now back up to 9/10 and feeling nauseated. Medicated with IV Zofran for nausea and IV Dilaudid for pain + po Vistaril. Declines offer of ice pack. Plan to provide additional po Dilaudid at 0300 when next due.
[2019-09-12] MEDS: HYDROMORPHONE 2 MG TABLET 4 MG PO ×8 (02:59→21:40)
[2019-09-12 03:55] VITALS: BP 123/67; PULSE 112; RESP 20; TEMP 36.9; O2SAT 97
[2019-09-12] MEDS: dexAMETHasone 4 MG TABLET PO ×4 (06:30→21:40)
[2019-09-12 07:50] VITALS: BP 124/68; PULSE 104; RESP 16; TEMP 37.3; O2SAT 96
[2019-09-12] MEDS: DOCUSATE 100 MG CAPSULE PO ×2 (08:28→20:57)
--- NOTE | 2019-09-12 09:55 | PM.PNPO.1 ---
Subjective Subjective Date Patient Seen: 09/12/19 Time Patient Seen: 09:55 Interval history: Six denies fever or chills. Pain 6 to 9/10. Severe pain last night and nausea. Denies any vomiting. Pain overall better today between 4 and 6/10. She still feels nauseous. Exam Vital Signs (past 8 hours): - 09/12/19 03:55 09/12/19 07:50 Temperature 98.4 F 99.1 F Pulse Rate 112 H 104 H Respiratory Rate 20 16 Blood Pressure 123/67 124/68 Pulse Oximetry 97 96 Oxygen Delivery Method Room Air Oxygen Flow Rate 0 Narrative Exam Narrative: 44-year-old female resting comfortably in bed in no apparent distress. Sensation grossly intact to light touch bilateral lower extremities. Motor functions intact. Both legs are warm and dry. Dressing is clean, dry and intact. Assessment & Plan Post-op Postoperative Procedures: Procedures Operation Date: 09/10/19 13:45 Actual Procedures Side Surgeon p L4-5 TLIF Not Applicable Hailey Napier MD Postop day 2. Continue to work on pain control and nausea. Mobilize with physical therapy and discharge home tomorrow. Limit bending, and twisting, lifting. Quality VTE Deep Vein Thrombosis/Pulmonary Embolism Present on Admission: No
--- NOTE | 2019-09-12 09:56 | PT.IPTN ---
Current Diagnoses Spinal stenosis, lumbar region without neurogenic claudication (09/10/19) Intervertebral disc disorders with radiculopathy, lumbar region (09/10/19) Other specified postprocedural states (09/10/19) Surgery Performed Operation Date: 09/10/19 13:45 Actual Procedures p L4-5 TLIF(Not Applicable) - Hailey Npaier MD Physical Therapy Treatment Note M2 PT-IP Current Condition Start: 09/11/19 12:18 Freq: NEEDED Status: Active Protocol: Document 09/11/19 11:00 AB (Rec: 09/11/19 12:35 AB [id number]) Physical Therapy Current Condition Current Condition Evaluation Date 09/11/19 Treatment Diagnosis s/p L4-5 post. fusion/lami; difficulty in walking Onset Date 09/10/2019 Precautions Lumbar Precautions Log Roll,No Twisting,Limit Bending,Lifting Restriction of 10 lbs,Gait Belt above Incisional Area M3 PT-IP Subjective Start: 09/11/19 12:18 Freq: NEEDED Status: Active Protocol: Document 09/12/19 09:56 AB (Rec: 09/12/19 11:46 AB [id number]) Subjective Physical Therapy Visit Type Type Treatment Note Visit Start Time 09:56 Visit Stop Time 10:28 Total Visit Minutes 32 Number of BILLING MACHINE OPERATOR Visits 0 Physical Therapy Visit Comments Patient Comments stated that she had a lot of pain yesterday and did not sleep well and is tired right now but agreed to do some PT Therapy Pain Assessment Pain When Pain Assessed At Rest Pain Present Pain Present Pain Reported Location back/legs Intensity 4 Scale Used increased during mobility Pain Management Techniques Modification of Treatment,Re- positioning,Timing of Activity with Medications M4 PT-IP Mobility and Gait Start: 09/11/19 12:18 Freq: NEEDED Status: Active Protocol: Document 09/12/19 09:56 AB (Rec: 09/12/19 11:46 AB [id number]) PT-Bed Mobility Assessment Rolling Type of Rolling Log Rolling Level of Assist Standby Assistance,1 Person Assistance Supine to Sit Supine to Sit Standby Assistance,1 Person Assistance Sit to Supine Sit to Supine Moderate Assistance,1 Person Assistance PT-Transfer Assessment Sit to and From Stand Sit to and from Stand Contact Guard Assistance,Use of Upper Extremities Equipment Transfer Assistive Device Gait Belt,Front Wheeled Walker Orthotic/Prosthetic Devices or Brace: No Transfers Transfer Destination Toilet Transfer Technique ambulated using FWW Comments Mobility Comments caregiver training conducted and spouse was able to assist pt safely with bed mobility, transfers and ambulation. pt refused to do stair training. Gait Assessment Gait Gait Assistance Required: Contact Guard Assist Distance (Feet) 100 Able to Maintain Weight Bearing Status Yes During Gait Assistive Devices Assistive Device Gait Belt,Front Wheeled Walker Orthotic/Prosthetic Devices or Brace: No Gait Deviations General Gait Pattern Antalgic,Decreased Stride Length,Decreased Feet Clearance Factors Limiting Gait Function Factors Limiting Gait Function Decreased Activity Tolerance, Decreased Strength,Limited Range of Motion,Pain,Poor Balance M5 PT-IP Objective Assessments Start: 09/11/19 12:18 Freq: NEEDED Status: Active Protocol: Document 09/11/19 11:00 AB (Rec: 09/11/19 12:35 AB [id number]) Orientation Orientation/Cognition Level of Alertness Alert Orientation Name,Age,Place,Situation Language Function Ability No Deficits Noted Safety Awareness Understands Safety Issues Memory Description No Deficits Noted Gross Range of Motion Lower Extremity ROM Assessment Within Functional Limits Strength Lower Extremity Strength Assessment Bilaterally Impaired Comments Strength Comments RLE 3+/5 LLE 4-/5 Coordination Assessment Gross Coordination Gross Coordination WNL Sensation Assessment Sensation Sensation Description Numbness,Tingling,Pain Comments Sensation Comments pain, numbness, tingling : RLE >LLE Muscle Tone Muscle Tone WNL Yes M6 PT-IP Treatment Start: 09/11/19 12:18 Freq: NEEDED Status: Active Protocol: Document 09/12/19 09:56 AB (Rec: 09/12/19 11:46 AB [id number]) Physical Therapy Treatment Education Education Provided Precautions,Safety M7 PT-IP Assessment and Plan Start: 09/11/19 12:18 Freq: NEEDED Status: Active Protocol: Document 09/12/19 09:56 AB (Rec: 09/12/19 11:46 AB [id number]) PT Summary Assessment and Plan Potential Rehabilitation Potential Good Summary Impairments Pain,ROM,Strength,Balance, Sensation,Bed Mobility, Transfers,Gait,Activity Tolerance Progress Towards Goals Slow Progress due to Pain Assessment Summary pt continues to c/o increase pain affecting mobility and activity tolerance. spouse was able to assist pt safely. will continue with caregiver training and stair training when appropriate. Goals Bed Mobility Goal Independent Transfer Goal Independent,Front Wheeled Walker Gait Goal Independent,Front Wheel Walker Gait Distance 250 Other Goals up/down 15 steps L rail asceding SBA up/down 2 steps using foot stool and FWW to get into the shower SBA Days to Meet Goals 5 Frequency of Treatment Frequency Of Treatment Twice a Day Treatment Plan Physical Therapy Treatment Plan Bed Mobility Training,Transfer Training,Gait Training, Therapeutic Exercise,Balance Retraining,Post Op Education, Discharge Planning,Hot or Cold Pack,Neuromuscular Re-ed, Coordination Retraining,Manual Therapy Other Recommendations and Next Treatment caregiver training; stair Focus training Recommendations To Nursing Amount of Assist Needed 1 Person Assist Discharge Recommendations PT Discharge Recommendations Home with Assistance Equipment Needed for Home Before FWW Discharge Transportation Needs at Discharge Private Vehicle
--- NOTE | 2019-09-12 13:29 | OT.IP.TRT ---
Current Diagnoses Spinal stenosis, lumbar region without neurogenic claudication (09/10/19) Intervertebral disc disorders with radiculopathy, lumbar region (09/10/19) Other specified postprocedural states (09/10/19) Surgery Performed Operation Date: 09/10/19 13:45 Actual Procedures p L4-5 TLIF(Not Applicable) - Hailey Napier MD Occupational Therapy Treatment Note M2 OT-IP Current Condition Start: 09/11/19 11:42 Freq: Status: Active Protocol: Document 09/11/19 13:22 PJM (Rec: 09/11/19 15:30 PJM [id number]) Occupational Therapy Current Condition Current Condition Evaluation Date 09/11/19 Treatment Diagnosis decreased self care, mobility s/p L4-5 TLIF Diagnosis Onset Date 09/10/19 Post Operative Precautions Lumbar Precautions Log Roll,No Twisting,Limit Bending,Lifting Restriction of 10 lbs,Gait Belt above Incisional Area M3 OT- IP Subjective and Pain Start: 09/11/19 11:42 Freq: Status: Active Protocol: Document 09/12/19 13:29 PJM (Rec: 09/12/19 14:25 PJ [id number]) OT- Subjective Occupational Therapy Visit Type Type Treatment Note Visit Start Time 13:20 Visit Stop Time 13:29 Total Visit Minutes 9 Notes Attempted to see pt at 1200, but too fatigued from AM P.T. tx. Returned after lunch and pt still declining out of bed activity but had questions about toilet paper aids. Occupational Therapy Visit Comments Patient Comments I had a really bad night. My pain got out of control and I didn't get much sleep. Patient/Caregiver Goals to have less pain and go home tomorrow if feeling better OT Pain Assessment Pain When Pain Assessed After Treatment Pain Present Pain Present Pain Reported Location back/legs Intensity 7 Scale Used Numeric (1 - 10) Description Aching,Acute Pain Behaviors Guarding M4 OT- IP ADL's Start: 09/11/19 11:42 Freq: Status: Active Protocol: Document 09/12/19 13:29 PJM (Rec: 09/12/19 14:25 PJM [id number]) OT ADL-Toileting Comments OT Toileting Comments Assisted pt with looking up on line resources for toilet paper aids and provided further education re: pro's and cons of wand style vs tong style devices. Encouraged pt to read on line reviews. Pt plans to order toilet paper aid today for home use. OT ADL-Bathing Comments OT Bathing Comments Pt agreed to shower tomorrow AM if coordinated with pain meds prior. M6 OT- IP Functional Cognition Start: 09/11/19 11:42 Freq: Status: Active Protocol: Document 09/11/19 13:22 PJM (Rec: 09/11/19 15:30 PJM [id number]) Cognitive Factors Limiting Selfcare Function Cognitive Ability Level of Alertness Alert Patient Orientation Name,Age,Birthday,Month,Date, Year,Day of Week,Place, Situation Attention Span Ability Capable of Focused Attention, Capable of Sustained Attention Ability to Follow Commands Able to Follow Multi-Step Commands Memory Description No Deficits Noted Safety Awareness No Deficits Noted Problem Solving Ability No deficits Noted Cognitive Comments Cognitive Assessment Comments Pt verbalizes and demonstrates understanding of lumbar spine precautions. M9 OT- IP Assessment and Plan Start: 09/11/19 11:42 Freq: Status: Active Protocol: Document 09/12/19 13:29 PJM (Rec: 09/12/19 14:25 PJM [id number]) OT Summary Assessment and Plan Summary OT Impairments Pain,Dressing,Toileting, Bathing,Shower Transfers, Activity Tolerance Progress Towards Goals Slow Progress due to Pain,Slow Progress due to Activity Tolerance Assessment Summary Pt self limiting participation with out of bed activity today due to fatigue and decreased pain control. She wants to save her energy for P.T. today, but agreed to shower and work on lower body dressing tomorrow AM. All education re: toilet paper aids completed and pt verbalizes understanding. Plan 1 additional OT tx in AM. Note she will have 24 hr assist at home from supportive S.O. Goals Grooming Goal Independent Dressing Goal Standby Assistance,Long Handled Shoe Horn,Pricing Intern,Sock Aid Toileting Goal Standby Assistance,Toilet Paper Aid Bathing Goal Standby Assistance,Long Handled Sponge or [place] Toilet Transfer Goal Standby Assistance Shower Transfer Goal Contact Guard Assistance,Tub/ Shower Combination,Tub Transfer Bench Patient/Caregiver Education Goal Demonstrate Post-Op Precautions,Demonstrate Energy Conservation and Pacing, Caregiver Independent Assisting Patient OT-Other Goals Grooming to be done standing at sink with FWW. Days to Meet Goals 1 Frequency of Treatment Frequency Of Treatment Once a Day Treatment Plan OT Treatment Plan ADL Training,Functional Mobility,Patient/Family Education,Discharge Planning Discharge Recommendations OT Discharge Recommendations Home with Assistance Transportation Needs at Discharge Private Vehicle
--- NOTE | 2019-09-12 13:49 | PT.IPTN ---
Current Diagnoses Spinal stenosis, lumbar region without neurogenic claudication (09/10/19) Intervertebral disc disorders with radiculopathy, lumbar region (09/10/19) Other specified postprocedural states (09/10/19) Surgery Performed Operation Date: 09/10/19 13:45 Actual Procedures p L4-5 TLIF(Not Applicable) - Hailey Napier MD Physical Therapy Treatment Note M2 PT-IP Current Condition Start: 09/11/19 12:18 Freq: NEEDED Status: Active Protocol: Document 09/11/19 11:00 AB (Rec: 09/11/19 12:35 AB [id number]) Physical Therapy Current Condition Current Condition Evaluation Date 09/11/19 Treatment Diagnosis s/p L4-5 post. fusion/lami; difficulty in walking Onset Date 09/10/2019 Precautions Lumbar Precautions Log Roll,No Twisting,Limit Bending,Lifting Restriction of 10 lbs,Gait Belt above Incisional Area M3 PT-IP Subjective Start: 09/11/19 12:18 Freq: NEEDED Status: Active Protocol: Document 09/12/19 13:49 AB (Rec: 09/12/19 16:28 AB [id number]) Subjective Physical Therapy Visit Type Type Treatment Note Visit Start Time 13:49 Visit Stop Time 14:26 Total Visit Minutes 37 Number of DAY WORKER Visits 0 Physical Therapy Visit Comments Patient Comments pt agreeable to do PT Therapy Pain Assessment Pain When Pain Assessed At Rest Pain Present Pain Present Pain Reported Location back/legs Intensity 4 Scale Used Numeric (1 - 10) Pain Management Techniques Re-positioning,Timing of Activity with Medications M4 PT-IP Mobility and Gait Start: 09/11/19 12:18 Freq: NEEDED Status: Active Protocol: Document 09/12/19 13:49 AB (Rec: 09/12/19 16:28 AB [id number]) PT-Bed Mobility Assessment Rolling Type of Rolling Log Rolling Supine to Sit Supine to Sit Standby Assistance Sit to Supine Sit to Supine Moderate Assistance Scooting Scooting to Edge of Bed Standby Assistance PT-Transfer Assessment Sit to and From Stand Sit to and from Stand Contact Guard Assistance, Minimal Assistance,1 Person Assistance Equipment Transfer Assistive Device Gait Belt,Front Wheeled Walker Orthotic/Prosthetic Devices or Brace: No Transfers Transfer Destination Toilet Transfer Technique ambulated using FWW Transfer Ability Level of Assist Contact Guard Assistance, Minimal Assistance,1 Person Assistance,Use of Upper Extremities Comments Mobility Comments daughter present for caregiver training. educated on how to use safety belt and how to assist pt. daughter was able to assist pt with bed mobility , sit to stand and ambulation to the toilet. was able to assist pt with toileting needs . pt ambulated farther ~ 125 ft using FWW with daughter assisting CGA. completed up/ down steps using L rail CGA. pt completed 2 sets. pt requested to go back to bed afterwards and daughter assist pt with bed mobility. positioned pt in bed. call light and table placed within reach. Gait Assessment Gait Gait Assistance Required: Contact Guard Assist Distance (Feet) 125 Able to Maintain Weight Bearing Status Yes During Gait Assistive Devices Assistive Device Gait Belt,Front Wheeled Walker Orthotic/Prosthetic Devices or Brace: No Gait Deviations General Gait Pattern Antalgic,Decreased Stride Length,Decreased Feet Clearance Factors Limiting Gait Function Factors Limiting Gait Function Decreased Activity Tolerance, Decreased Sensation,Decreased Strength,Limited Range of Motion,Pain,Poor Balance Comments Gait Comments pls refer to mobility section for details Stair Climbing Assessment Evaluation Level of Assist On Stairs Contact Guard Assistance Devices Stair Climbing Assistive Devices Left Railing Technique/Endurance Stair Climbing Direction Ascend and Descend Stair Climbing Technique Step to Step Number of Steps Climbed 3 Stair Climbing Set # Repetitions (reps) 2 M5 PT-IP Objective Assessments Start: 09/11/19 12:18 Freq: NEEDED Status: Active Protocol: Document 09/11/19 11:00 AB (Rec: 09/11/19 12:35 AB [id number]) Orientation Orientation/Cognition Level of Alertness Alert Orientation Name,Age,Place,Situation Language Function Ability No Deficits Noted Safety Awareness Understands Safety Issues Memory Description No Deficits Noted Gross Range of Motion Lower Extremity ROM Assessment Within Functional Limits Strength Lower Extremity Strength Assessment Bilaterally Impaired Comments Strength Comments RLE 3+/5 LLE 4-/5 Coordination Assessment Gross Coordination Gross Coordination WNL Sensation Assessment Sensation Sensation Description Numbness,Tingling,Pain Comments Sensation Comments pain, numbness, tingling : RLE >LLE Muscle Tone Muscle Tone WNL Yes M6 PT-IP Treatment Start: 09/11/19 12:18 Freq: NEEDED Status: Active Protocol: Document 09/12/19 13:49 AB (Rec: 09/12/19 16:28 AB [id number]) Physical Therapy Treatment Education Education Provided Precautions,Safety M7 PT-IP Assessment and Plan Start: 09/11/19 12:18 Freq: NEEDED Status: Active Protocol: Document 09/12/19 13:49 AB (Rec: 09/12/19 16:28 AB [id number]) PT Summary Assessment and Plan Potential Rehabilitation Potential Good Summary Impairments Pain,ROM,Strength,Balance, Coordination,Sensation,Tone, Cognition,Bed Mobility, Transfers,Gait,Activity Tolerance Progress Towards Goals Slow Progress due to Pain Assessment Summary caregiver training conducted with pt's daughter. daughter was able to assist pt safely. pt progressing slowly with mobility. pt plans to go home and family to assist her. Goals Bed Mobility Goal Independent Transfer Goal Independent,Front Wheeled Walker Gait Goal Independent,Front Wheel Walker Gait Distance 250 Other Goals up/down 15 steps L rail asceding SBA Days to Meet Goals 5 Frequency of Treatment Frequency Of Treatment Twice a Day Treatment Plan Physical Therapy Treatment Plan Bed Mobility Training,Transfer Training,Gait Training, Therapeutic Exercise,Balance Retraining,Post Op Education, Discharge Planning,Hot or Cold Pack,Neuromuscular Re-ed, Coordination Retraining,Manual Therapy Other Recommendations and Next Treatment caregiver training; stair Focus training Recommendations To Nursing Amount of Assist Needed 1 Person Assist Discharge Recommendations PT Discharge Recommendations Home with Assistance Equipment Needed for Home Before FWW Discharge Transportation Needs at Discharge Private Vehicle
[2019-09-12 14:00] VITALS: BP 128/73; PULSE 100; RESP 17; TEMP 36.6; O2SAT 95
[2019-09-12 15:39] VITALS: BP 114/64; PULSE 96; RESP 18; TEMP 36.3; O2SAT 96
[2019-09-12] MEDS: ACETAMINOPHEN 325 MG TABLET 650 MG PO (18:20)
[2019-09-12] MEDS: MAGNESIUM HYDROXIDE 30 ML UDC PO (18:27)
[2019-09-12 19:43] VITALS: BP 123/73; PULSE 102; RESP 18; TEMP 36.4
[2019-09-12] MEDS: VENLAFAXINE ER 75 MG CAP PO (20:57)
[2019-09-12] MEDS: NORETHINDRONE AC ETH ESTRADIOL 1 EACH PO (20:58)
[2019-09-12] MEDS: SENNOSIDES 8.6 MG TABLET 17.2 MG PO (20:58)
[2019-09-13] VITALS: BP 108/53; PULSE 89; RESP 16; TEMP 36.8; O2SAT 96
[2019-09-13] MEDS: HYDROMORPHONE 2 MG TABLET 4 MG PO ×5 (00:45→12:40)
[2019-09-13] MEDS: hydrOXYzine pamoate 25 MG CAPSULE PO ×4 (01:37→13:14)
--- NOTE | 2019-09-13 02:50 | PC.NURSE ---
Addendum entered by Krista Chang R.N. 09/13/19 06:48: Continuing to utilize 4mg po Dilaudid q3h and 25mg of Vistaril q4h to keep pain well controlled. This morning states pain is down to 3/10. Original Note: Patient seen and assessed at 0140. Is alert and oriented. Breath sounds CTA with RA sat of 96%. HRR; noted patient is no longer tachycardic since pain control improved. Denies nausea. BT present and passing flatus but has not had BM since 09/09. Assisted to reposition as patient requests but has family in room (have had caregiver training) helping her. Up to bathroom with walker and 1 assist. Dressing to back with shadow drainage noted (outlined on previous shift). CMS intact and denies numbness in LE tonight. Wearing calf SCD's although just now was up to bathroom and requests to leave them off; reminded to ankle wave while awake. Pain has been 4-5 tonight and is receiving po Dilaudid + Vistaril and continues to receive Decadron; states current pain regimen is adequate for pain control. Fall risk score is moderate; bed alarm activated for safety.
[2019-09-13] MEDS: dexAMETHasone 4 MG TABLET PO ×2 (05:38→13:14)
[2019-09-13 08:31] LABS: Hematocrit 32.6 % (36-46); Hemoglobin 10.7 g/dL (12.0-16.0)
[2019-09-13 09:15] VITALS: BP 127/76; PULSE 71; RESP 16; TEMP 35.9; O2SAT 96
[2019-09-13] MEDS: DOCUSATE 100 MG CAPSULE PO (09:37)
[2019-09-13] MEDS: SODIUM CHLORIDE 0.9% FLUSH 10 ML IV (09:38)
--- NOTE | 2019-09-13 11:25 | OT.IP.TRT ---
Current Diagnoses Spinal stenosis, lumbar region without neurogenic claudication (09/10/19) Intervertebral disc disorders with radiculopathy, lumbar region (09/10/19) Other specified postprocedural states (09/10/19) Surgery Performed Operation Date: 09/10/19 13:45 Actual Procedures p L4-5 TLIF(Not Applicable) - Hailey Napier MD Occupational Therapy Treatment Note M3 OT- IP Subjective and Pain Start: 09/11/19 11:42 Freq: Status: Active Protocol: Document 09/13/19 11:25 PJM (Rec: 09/13/19 15:34 PJ [id number]) OT- Subjective Occupational Therapy Visit Type Type Treatment Note Visit Start Time 10:26 Visit Stop Time 11:25 Total Visit Minutes 29 Notes Pt's daughter here for education this session. Occupational Therapy Visit Comments Patient Comments I feel so much better today. Patient/Caregiver Goals to go home later today, to resume independence in daily tasks with less back pain, be able to exercise OT Pain Assessment Pain When Pain Assessed After Treatment Pain Present Pain Present Pain Reported Location back/legs Intensity 5 Scale Used Numeric (1 - 10) Description Aching,Acute M4 OT- IP ADL's Start: 09/11/19 11:42 Freq: Status: Active Protocol: Document 09/13/19 11:25 PJM (Rec: 09/13/19 15:34 PJ [id number]) OT ADL-Dressing General Eval Upper Body Dressing Ability Independent Areas Needing Assistance Bra,Pull-Over Shirt,Underpants /Brief,Pants/Shorts,Socks, Shoes Assistive Devices Dressing Assistive Devices Long Handled Shoe Horn,Donor Floor Technician ,Sock Aid Comments OT Dressing Comments Pt demonstrates effective use of lower body dressing equipment. OT ADL-Toileting Comments OT Toileting Comments Pt states she has ordered toilet paper aid OT ADL-Bathing Bathing Type Bathing Type Shower General Evaluation Bathing Ability Minimal Assistance Areas Needing Assistance Wash/Dry Lower Extremities Devices Bathing Equipment Long Handled Sponge or [place], Hand Held Shower Sprayer, Shower Chair with Arms,Grab Bars Comments OT Bathing Comments Provided education to pt/ daughter re: body mechanics and adapted techniques and they verbalize and demonstrate understanding; daughter able to assist pt appropriately. M6 OT- IP Functional Cognition Start: 09/11/19 11:42 Freq: Status: Active Protocol: Document 09/13/19 11:25 PJM (Rec: 09/13/19 15:34 [facility] [id number]) Cognitive Factors Limiting Selfcare Function Cognitive Comments Cognitive Assessment Comments Pt demonstrates and verbalizes understanding of all education. M7 OT- IP Mobility and Balance Start: 09/11/19 11:42 Freq: Status: Active Protocol: Document 09/13/19 11:25 PJM (Rec: 09/13/19 15:34 [facility] [id number]) OT-Transfer Assessment Sit to and From Stand Sit to and from Stand Standby Assistance,1 Person Assistance Transfers Transfer Ability Standby Assistance,1 Person Assistance Technique Transfer Destination Car,Chair,Shower Stall Transfer Technique Stand Step Pivot Devices Transfer Assistive Devices Gait Belt,Front Wheeled Walker Comments Mobility Comments pt/daughter educated re: car transfer technique OT- Gait Assessment Gait Distance (Feet) 25 Assistive Devices Assistive Device Gait Belt,Front Wheeled Walker Comments Gait Ability Comments no LOB noted OT- Balance Assessment Sitting Balance and Reactions Static Sitting Balance Ability Good Dynamic Sitting Balance Ability Good Standing Balance and Reactions Static Standing Balance Ability Good Dynamic Standing Balance Ability Good Comments Other Balance Tests/Deviations/Treatment with FWW : M9 OT- IP Assessment and Plan Start: 09/11/19 11:42 Freq: Status: Active Protocol: Document 09/13/19 11:25 PJM (Rec: 09/13/19 15:34 [facility] [id number]) OT Summary Assessment and Plan Potential Rehabilitation Potential Good Summary Progress Towards Goals Safe For Discharge,Goals Met Assessment Summary All OT goals achieved for this admission as described above. Pt plans to d/c home today with 24 hr family assist. No further OT services needed. Frequency of Treatment Frequency Of Treatment Discharge Discharge Recommendations OT Discharge Recommendations Home with 07/02 Assist Transportation Needs at Discharge Private Vehicle
--- NOTE | 2019-09-13 11:46 | PT.IPTN ---
Current Diagnoses Spinal stenosis, lumbar region without neurogenic claudication (09/10/19) Intervertebral disc disorders with radiculopathy, lumbar region (09/10/19) Other specified postprocedural states (09/10/19) Surgery Performed Operation Date: 09/10/19 13:45 Actual Procedures p L4-5 TLIF(Not Applicable) - Hailey Napier MD Physical Therapy Treatment Note M2 PT-IP Current Condition Start: 09/11/19 12:18 Freq: NEEDED Status: Active Protocol: Document 09/11/19 11:00 AB (Rec: 09/11/19 12:35 AB [id number]) Physical Therapy Current Condition Current Condition Evaluation Date 09/11/19 Treatment Diagnosis s/p L4-5 post. fusion/lami; difficulty in walking Onset Date 09/10/2019 Precautions Lumbar Precautions Log Roll,No Twisting,Limit Bending,Lifting Restriction of 10 lbs,Gait Belt above Incisional Area M3 PT-IP Subjective Start: 09/11/19 12:18 Freq: NEEDED Status: Active Protocol: Document 09/13/19 11:46 AB (Rec: 09/13/19 12:29 AB [id number]) Subjective Physical Therapy Visit Type Type Treatment Note Visit Start Time 11:46 Visit Stop Time 12:02 Total Visit Minutes 16 Number of EDUCATION AND TRAINING MANAGER Visits 0 Physical Therapy Visit Comments Patient Comments pt just finished with OT and had a shower. stated that she is tired but agreed to do ambulation. daughter in room with pt and does not have any concerns. caregiver training with daughter was conducted yesterday and pt and daughter feels confident on assistance level and mobility. Therapy Pain Assessment Pain When Pain Assessed At Rest Pain Present Pain Present Pain Reported Location Abdomen Intensity 4 Scale Used Numeric (1 - 10) Pain Management Techniques Timing of Activity with Medications M4 PT-IP Mobility and Gait Start: 09/11/19 12:18 Freq: NEEDED Status: Active Protocol: Document 09/12/19 13:49 AB (Rec: 09/12/19 16:28 AB [id number]) PT-Bed Mobility Assessment Rolling Type of Rolling Log Rolling Supine to Sit Supine to Sit Standby Assistance Sit to Supine Sit to Supine Moderate Assistance Scooting Scooting to Edge of Bed Standby Assistance PT-Transfer Assessment Sit to and From Stand Sit to and from Stand Contact Guard Assistance, Minimal Assistance,1 Person Assistance Equipment Transfer Assistive Device Gait Belt,Front Wheeled Walker Orthotic/Prosthetic Devices or Brace: No Transfers Transfer Destination Toilet Transfer Technique ambulated using FWW Transfer Ability Level of Assist Contact Guard Assistance, Minimal Assistance,1 Person Assistance,Use of Upper Extremities Comments Mobility Comments daughter present for caregiver training. educated on how to use safety belt and how to assist pt. daughter was able to assist pt with bed mobility , sit to stand and ambulation to the toilet. was able to assist pt with toileting needs . pt ambulated farther ~ 125 ft using FWW with daughter assisting CGA. completed up/ down steps using L rail CGA. pt completed 2 sets. pt requested to go back to bed afterwards and daughter assist pt with bed mobility. positioned pt in bed. call light and table placed within reach. Gait Assessment Gait Gait Assistance Required: Contact Guard Assist Distance (Feet) 125 Able to Maintain Weight Bearing Status Yes During Gait Assistive Devices Assistive Device Gait Belt,Front Wheeled Walker Orthotic/Prosthetic Devices or Brace: No Gait Deviations General Gait Pattern Antalgic,Decreased Stride Length,Decreased Feet Clearance Factors Limiting Gait Function Factors Limiting Gait Function Decreased Activity Tolerance, Decreased Sensation,Decreased Strength,Limited Range of Motion,Pain,Poor Balance Comments Gait Comments pls refer to mobility section for details Stair Climbing Assessment Evaluation Level of Assist On Stairs Contact Guard Assistance Devices Stair Climbing Assistive Devices Left Railing Technique/Endurance Stair Climbing Direction Ascend and Descend Stair Climbing Technique Step to Step Number of Steps Climbed 3 Stair Climbing Set # Repetitions (reps) 2 M5 PT-IP Objective Assessments Start: 09/11/19 12:18 Freq: NEEDED Status: Active Protocol: Document 09/11/19 11:00 AB (Rec: 09/11/19 12:35 AB [id number]) Orientation Orientation/Cognition Level of Alertness Alert Orientation Name,Age,Place,Situation Language Function Ability No Deficits Noted Safety Awareness Understands Safety Issues Memory Description No Deficits Noted Gross Range of Motion Lower Extremity ROM Assessment Within Functional Limits Strength Lower Extremity Strength Assessment Bilaterally Impaired Comments Strength Comments RLE 3+/5 LLE 4-/5 Coordination Assessment Gross Coordination Gross Coordination WNL Sensation Assessment Sensation Sensation Description Numbness,Tingling,Pain Comments Sensation Comments pain, numbness, tingling : RLE >LLE Muscle Tone Muscle Tone WNL Yes M6 PT-IP Treatment Start: 09/11/19 12:18 Freq: NEEDED Status: Active Protocol: Document 09/13/19 11:46 AB (Rec: 09/13/19 12:29 AB [id number]) Physical Therapy Treatment Education Education Provided Safety M7 PT-IP Assessment and Plan Start: 09/11/19 12:18 Freq: NEEDED Status: Active Protocol: Document 09/13/19 11:46 AB (Rec: 09/13/19 12:29 AB [id number]) PT Summary Assessment and Plan Potential Rehabilitation Potential Good Summary Impairments Pain,ROM,Strength,Balance, Coordination,Sensation,Bed Mobility,Transfers,Gait, Activity Tolerance Progress Towards Goals Progressing Toward Goals Assessment Summary pt progressing with mobility and plans to go home later today. caregiver training completed with pt's spouse and daughter yesterday and the day before. pt and daughter feels comfortable with level of assistance provided. pt may go home when medically stable. Goals Bed Mobility Goal Independent Transfer Goal Independent,Front Wheeled Walker Gait Goal Independent,Front Wheel Walker Gait Distance 250 Other Goals up/down 15 steps L rail asceding SBA Days to Meet Goals 5 Frequency of Treatment Frequency Of Treatment Twice a Day Treatment Plan Physical Therapy Treatment Plan Bed Mobility Training,Transfer Training,Gait Training, Therapeutic Exercise,Balance Retraining,Post Op Education, Discharge Planning,Hot or Cold Pack,Neuromuscular Re-ed, Coordination Retraining,Manual Therapy Other Recommendations and Next Treatment caregiver training; stair Focus training Recommendations To Nursing Amount of Assist Needed 1 Person Assist Discharge Recommendations PT Discharge Recommendations Home with Assistance Equipment Needed for Home Before FWW Discharge Transportation Needs at Discharge Private Vehicle
[2019-09-13 12:44] VITALS: BP 145/95; PULSE 88; RESP 16; TEMP 36; O2SAT 98
--- NOTE | 2019-09-13 13:01 | PM.DS.1 ---
History of Present Illness History of Present Illness Date Patient Seen: 09/13/19 Time Patient Seen: 13:01 Chief complaint: Translaminar Interbody Fusion/Laminotomy Narrative: Please see HPI previously recorded in the chart. Discharge Providers Provider Date of admission: 09/10/19 11:18 Discharge Date: 09/13/19 Primary care physician: Mary Leos PA-C Consults: 09/10/19 20:30 Consult to Occupational Therapy Evaluate & Treat Comment: Physician Instructions: Evaluate and treat Consult to Physical Therapy Evaluate & Treat Comment: Physician Instructions: Evaluate and Treat 09/12/19 10:16 Consult to Physical Therapy Evaluate & Treat Comment: FWW for home Physician Instructions: Evaluate and Treat Discharge provider: Barbara Choudhary PA-C Summary Hospital Course Discharge Diagnosis: s/p L4-5 TLIF Hospital Course: Patient is a 44 year old female with morbid obesity who has been having chronic back pain and worsening lumbar radiculopathy. Patient had prior lumbar microdiskectomy with recurrence of her symptoms. She failed multiple conservative management with worsening pain weakness and numbness in her lower extremity. Patient has been having difficulty performing activity of daily living. After discussing risks benefits of treatment options, patient elected proceed with surgery. After obtaining informed consent she was taken to the operating room where she underwent a L4-[address] Napier which she toleratd well without complications. Afterwards she was taken to the acute care floor where her postoperative course was complicated by difficulties with pain management and poor mobility due to pain which persisted until POD#3. Pain is controlled on a regimen of Tylenol, Dilaudid, and Vistaril. She has been cleared by physical therapy. She is voiding appropriately and tolerating a diet. She is medically stable for discharge to home at this time and was given a prescription for Dilaudid, Vistaril and Colace. Exam Vital Signs (past 8 hours): - 09/13/19 09:15 09/13/19 12:44 Temperature 96.7 F L 96.8 F L Pulse Rate 71 88 Respiratory Rate 16 16 Blood Pressure 127/76 145/95 H Pulse Oximetry 96 98 Oxygen Delivery Method Room Air Oxygen Flow Rate 0 Narrative Exam Narrative: 44 year old female resting in a chair. Alert and oriented in no acute distress. Dressing in place over lumbar spine is CDI. 5/5 BLE. Calves soft, compressible. Objective Labs Result Diagrams: 09/13/19 08:20 Labs: Laboratory Results - last 24 hr 09/13/19 08:20 Hgb 10.7 L Hct 32.6 L Discharge Plan Discharge Plan Patient Disposition: Home Discharge orders & Medications Prescriptions: New acetaminophen 325 mg Tablet 650 mg PO Q6HR PRN (Reason: Pain, Mild (1-3)) Qty: 40 RF: 0 hydromorphone 2 mg Tablet 2 mg PO Q4-6H PRN (Reason: Pain, Severe (7-10)) Qty: 60 RF: 0 docusate sodium [DOK] 100 mg Capsule 100 mg PO BID Qty: 40 RF: 0 hydroxyzine pamoate 25 mg Capsule 25 mg PO Q4HR PRN (Reason: Nausea And Vomiting) Qty: 60 RF: 0 Continued venlafaxine [Effexor XR] 75 mg Capsule,Extended Release 24hr 75 mg PO DAILY RF: 0 norethindrone ac-eth estradiol [Donavon 1.5/30 (21)] 1.5-30 mg-mcg Tablet 1 tab PO DAILY RF: 0 Discontinued ibuprofen [Advil] 200 mg Tablet 400 mg PO Q6H PRN (Reason: Pain (Scale Score 1-3)) RF: 0 Follow up/Referrals: Mary Leos PA-C [Primary Care Provider] - Hailey Napier MD [Physician] - Diet/Activity/Treatments Diet: Diet as Tolerated Activity: No bending, lifting, twisting Cold/Heat Therapy: Ice as needed Skin/Wound/Dressing Care Report to your healthcare provider any signs of infection, such as:: chills, fever, night sweats, unusual drainage and unusual redness Dressing: Dressing is to remain in place until your post op. Call the office if this becomes saturated or soiled Visit Report/Discharge Packet Instructions: Hydromorphone, Hydroxyzine, DI for Transforaminal Lumbar Interbody Fusion Visit Report Forms: Patient Portal/API, Stroke Signs & Symptoms Discharge Data Primary Care Provider: Mary Leos Discharges patient from system. Discharge Date/Time: 09/13/19 14:06 Quality VTE Deep Vein Thrombosis/Pulmonary Embolism Present on Admission: No
--- NOTE | 2019-09-13 13:08 | PC.NURSE ---
Pt is dressed and ready for discharge home with daughter. IV removed, dressing to back changed, pt showered. Went over d/c instructions with Pt and daughter-discussed d/c meds, time of last dose, reviewed stroke education, s/s of infection, follow up and encouraged fluid intake to prevent constipation or dehydration. Pt denies further questions and was taken out via w/c to pov with daughter and all belongings.
--- NOTE | 2019-09-13 14:47 | CM.DPC ---
DCP: continued: case received and discussed in Team Rounds with plan for home setting when cleared by PT. A d/c order is now noted to be in place. A check in shows that pt did go home with her daughter as planned, about 1300.
== END 2019-09-13 14:06 | disposition home or self-care (01) | DRG 454 ==
PROVIDERS: Physician Assistant Surgical; Admitting Provider Orthopaedic Surgery Orthopaedic Surgery of the Spine; PCP Physician Assistant Medical; Referring Provider Orthopaedic Surgery Orthopaedic Surgery of the Spine; Visit Provider Orthopaedic Surgery Orthopaedic Surgery of the Spine
PROC: 0SG00AJ Fusion of Lumbar Vertebral Joint with Interbody Fusion Device, Posterior Approach, Anterior Column, Open Approach (ICD-10-PCS; principal; 2019-09-10 13:45)
DX: M48.061 Spinal stenosis, lumbar region without neurogenic claudication (principal); Z68.41 Body mass index [BMI] 40.0-44.9, adult; M51.16 Intervertebral disc disorders with radiculopathy, lumbar region; E66.9 Obesity, unspecified; K21.9 Gastro-esophageal reflux disease without esophagitis; G89.18 Other acute postprocedural pain; R11.0 Nausea
CPT/HCPCS: 36415; 72100; 76000; 85014; 85018; 97161; 97165; 97530; 97535; C1776; C9290; J0330; J0690; J1100; J1170; J2060; J2405; J2704; J3010; J3410